=== PATIENT | female | born 1955 | race Caucasian/White ===

== ENCOUNTER 2018-08-25 01:09 | Inpatient (IN) | payer MEDICARE, OTHER ==
[~2018-08-25] VITALS: Ht 320 cm; Wt 90.0 kg
[2018-08-25] MEDS ORDERED: CefTRIAXone 2gm/D5W 50ml 50 ML IV ONE (02:15)
[2018-08-25] MEDS ORDERED: ipratropium/albuterol 3ml nebule NEB ONE (02:15)
[2018-08-25] MEDS ORDERED: azithromycin/NS 500mg/250ml 250 ML IV ONE (02:15)
[2018-08-25 02:35] LABS: ABG BASE EXCESS -2.5 mmol/L (-2.0-3.0); ABG HCO3 23.5 mmol/L (22.0-26.0); ABG OXYGEN SATURATION 93.1 % (95-98); ABG PH (T) 7.321 (7.350-7.450); ABG PO2 (T) 75.2 mmHg (83-108); ALLEN'S TEST Positive; FCOHb 1.7 % (0.5-1.5); FLOW 2 L/min; FMetHb 0.3 % (0.3-1.12); FO2Hb 91.2 % (94-100); PATIENT TEMPERATURE 38.1; RESPIRATORY RATE (OBSERVED) 24 b/min; TOTAL HEMOGLOBIN 13.2 G/dl (12.0-16.0)
[2018-08-25 02:36] LABS: HEMATOCRIT 40.3 % (35.0-45.0); HEMOGLOBIN 13.9 g/dl (12.0-16.0); MEAN CORPUSCULAR HEMOGLOBIN 33.5 PG (27.0-31.0); MEAN CORPUSCULAR HGB CONC 34.4 % (33.0-36.5); MEAN CORPUSCULAR VOLUME 97.4 FL (78-98); MEAN PLATELET VOLUME 8.6 FL (7.4-10.4); PLATELET COUNT 300 X10'3 (140-440); RED BLOOD COUNT 4.13 X10'6 (4.20-5.60); RED CELL DISTRIBUTION WIDTH 14.5 % (11.5-14.5)
[2018-08-25 02:44] LABS: ALANINE AMINOTRANSFERASE 38 U/L (12-78); ALBUMIN/GLOBULIN RATIO 0.4 (1.1-1.5); ALKALINE PHOSPHATASE 222 IU/L (46-116); ANION GAP 10 (8-16); ASPARTATE AMINO TRANSFERASE 35 U/L (10-37); BILIRUBIN,TOTAL 2.7 MG/DL (0.1-1.0); BLOOD UREA NITROGEN 47 MG/DL (7-18); BUN/CREATININE RATIO 24.5 (6.6-38.0); CALCIUM 9.6 MG/DL (8.5-10.1); CHLORIDE 94 MMOL/L (99-107); CREATININE 1.92 MG/DL (0.40-0.90); GLUCOSE 136 MG/DL (70-104); SODIUM 128 MMOL/L (135-145); TOTAL CARBON DIOXIDE 23.9 MMOL/L (24-32); TOTAL PROTEIN 7.4 G/DL (6.4-8.2); eGFR 26 ML/MIN
[2018-08-25 03:34] LABS: PLATELET ESTIMATE NORMAL; TOTAL CELLS COUNTED 100; TOXIC GRANULATION 2+; TOXIC VACUOLATION 1+
[2018-08-25] MEDS ORDERED: NO HOME MEDS (04:09)
[2018-08-25] MEDS ORDERED: morphine 4 MG/ML inj SYRINge IV PRN ×2 (05:30)
[2018-08-25] MEDS ORDERED: magnesium hydroxide 30ml (MOM) UD suspension PO PRN (05:30)
[2018-08-25] MEDS ORDERED: ondansetron/PF 4mg/2ml inj IV PRN (05:30)
[2018-08-25] MEDS ORDERED: acetaminophen 325mg tablet PO PRN (05:30)
[2018-08-25] MEDS ORDERED: albuterol 2.5 MG/3 ML nebule CONTNEB PRN (05:35)
[2018-08-25] MEDS ORDERED: albuterol 2.5 MG/3 ML nebule NEB PRN (05:40)
[2018-08-25] MEDS: normal saline 1000ml 1,000 ML IV SCH ×2 (06:52→15:30)
[2018-08-25] MEDS: CefTRIAXone 2gm/D5W 50ml 50 ML IV SCH (08:00)
[2018-08-25] MEDS ORDERED: azithromycin/NS 500mg/250ml 250 ML IV SCH (08:00)
[2018-08-25] MEDS: methylPREDNISolone sod succ 125mg/2ml vial IV SCH ×2 (14:39→21:30)
[2018-08-25] MEDS: ipratropium/albuterol 3ml nebule NEB SCH (19:42)
[2018-08-25] MEDS: lactobacillus rhamnosus 10,000 MMU CELLS/CAPSULE PO SCH (21:30)
[2018-08-26] MEDS: ipratropium/albuterol 3ml nebule NEB SCH ×7 (00:30→22:52)
[2018-08-26] MEDS: azithromycin/NS 500mg/250ml 250 ML IV SCH (02:00)
[2018-08-26] MEDS: methylPREDNISolone sod succ 125mg/2ml vial IV SCH ×4 (03:40→22:50)
[2018-08-26] MEDS: normal saline 1000ml 1,000 ML IV SCH ×3 (03:43→18:55)
--- NOTE | 2018-08-26 06:35 | NUR ---
CALLED PCJazmyn DIAZ TO BRENNEN GLEASON TO RTAKE REPORT NOT READY AT THIS TIME,CN HEATEHR AWARE.
--- NOTE | 2018-08-26 07:30 | NUR ---
Patient in room PCU 3010. I have received report from RANDA HUTTON and had the opportunity to ask questions and assume patient care.
[2018-08-26 07:40] VITALS: BP 108/63
[2018-08-26] MEDS: lactobacillus rhamnosus 10,000 MMU CELLS/CAPSULE PO SCH ×2 (08:33→22:50)
[2018-08-26] MEDS: CefTRIAXone 2gm/D5W 50ml 50 ML IV SCH (08:40)
[2018-08-26 09:31] LABS: HEMATOCRIT 34.2 % (35.0-45.0); HEMOGLOBIN 11.4 g/dl (12.0-16.0); MEAN CORPUSCULAR HGB CONC 33.2 % (33.0-36.5); MEAN CORPUSCULAR VOLUME 99.2 FL (78-98); MEAN PLATELET VOLUME 8.3 FL (7.4-10.4); PLATELET COUNT 260 X10'3 (140-440); RED BLOOD COUNT 3.45 X10'6 (4.20-5.60); RED CELL DISTRIBUTION WIDTH 14.9 % (11.5-14.5)
[2018-08-26 09:38] LABS: WHITE BLOOD COUNT 29.5 X10'3 (4.5-11.0)
[2018-08-26 09:47] LABS: ALANINE AMINOTRANSFERASE 29 U/L (12-78); ALBUMIN 1.4 G/DL (3.4-5.0); ALBUMIN/GLOBULIN RATIO 0.3 (1.1-1.5); ALKALINE PHOSPHATASE 184 IU/L (46-116); ANION GAP 10 (8-16); ASPARTATE AMINO TRANSFERASE 26 U/L (10-37); BILIRUBIN,TOTAL 0.7 MG/DL (0.1-1.0); BLOOD UREA NITROGEN 33 MG/DL (7-18); BUN/CREATININE RATIO 30.3 (6.6-38.0); CALCIUM 8.7 MG/DL (8.5-10.1); CHLORIDE 98 MMOL/L (99-107); CREATININE 1.09 MG/DL (0.40-0.90); GLUCOSE 292 MG/DL (70-104); POTASSIUM 3.7 MMOL/L (3.5-5.1); SODIUM 133 MMOL/L (135-145); TOTAL CARBON DIOXIDE 25.1 MMOL/L (24-32); TOTAL PROTEIN 6.2 G/DL (6.4-8.2); eGFR 51 ML/MIN
[2018-08-26 09:51] LABS: TOTAL CELLS COUNTED 100
[2018-08-26 09:52] LABS: PLATELET ESTIMATE NORMAL
[2018-08-26 11:00] VITALS: BP 105/62
[2018-08-26 11:14] LABS: HEMATOCRIT 34.4 % (35.0-45.0); HEMOGLOBIN 11.3 g/dl (12.0-16.0); MEAN CORPUSCULAR HEMOGLOBIN 31.8 PG (27.0-31.0); MEAN CORPUSCULAR HGB CONC 32.9 % (33.0-36.5); MEAN CORPUSCULAR VOLUME 96.6 FL (78-98); MEAN PLATELET VOLUME 8.6 FL (7.4-10.4); PLATELET COUNT 258 X10'3 (140-440); RED BLOOD COUNT 3.56 X10'6 (4.20-5.60)
[2018-08-26 11:17] LABS: WHITE BLOOD COUNT 33.3 X10'3 (4.5-11.0)
--- NOTE | 2018-08-26 11:17 | NUR ---
Notified BRENNEN Negron of critical WBC result.
[2018-08-26 11:27] LABS: TOTAL CELLS COUNTED 100
[2018-08-26 11:28] LABS: PLATELET ESTIMATE NORMAL; TOXIC GRANULATION 1+
[2018-08-26 11:38] LABS: ALANINE AMINOTRANSFERASE 27 U/L (12-78); ALBUMIN 1.3 G/DL (3.4-5.0); ALBUMIN/GLOBULIN RATIO 0.3 (1.1-1.5); ALKALINE PHOSPHATASE 188 IU/L (46-116); ANION GAP 11 (8-16); BILIRUBIN,TOTAL 0.7 MG/DL (0.1-1.0); BLOOD UREA NITROGEN 32 MG/DL (7-18); BUN/CREATININE RATIO 33.3 (6.6-38.0); CALCIUM 8.5 MG/DL (8.5-10.1); CHLORIDE 97 MMOL/L (99-107); CREATININE 0.96 MG/DL (0.40-0.90); GLUCOSE 334 MG/DL (70-104); SODIUM 132 MMOL/L (135-145); TOTAL CARBON DIOXIDE 24.1 MMOL/L (24-32); TOTAL PROTEIN 6.1 G/DL (6.4-8.2); eGFR 59 ML/MIN
[2018-08-26 11:41] LABS: ASPARTATE AMINO TRANSFERASE 26 U/L (10-37); POTASSIUM 3.9 MMOL/L (3.5-5.1)
[2018-08-26 15:00] VITALS: BP 121/64
[2018-08-26 18:00] VITALS: BP 118/67
--- NOTE | 2018-08-26 19:14 | NUR ---
Patient in room PCU 3010. I have received report from Jamil HUTTON and had the opportunity to ask questions and assume patient care.
--- NOTE | 2018-08-26 19:31 | NUR ---
Pt. appeared to have labored breathing at rest during shift handover. O2 sat in low 90s. RT called, admin treatment. Course breath sounds auscultated, moist, non productive cough noted, contributing to SOB at rest. Moderate resp relief noted post RTx.
[2018-08-26 22:00] VITALS: BP 154/74
[2018-08-26] MEDS: linezolid 600mg tablet PO SCH (22:50)
[2018-08-27] MEDS: mag hydrox/Alum hydrox/simeth 30ml oral suspension PO PRN ×2 (00:27→09:49)
[2018-08-27 02:00] VITALS: BP 137/77
[2018-08-27] MEDS: ipratropium/albuterol 3ml nebule NEB SCH ×6 (02:39→23:38)
[2018-08-27] MEDS: methylPREDNISolone sod succ 125mg/2ml vial IV SCH ×2 (02:45→07:59)
[2018-08-27] MEDS: azithromycin/NS 500mg/250ml 250 ML IV SCH (02:46)
[2018-08-27] MEDS: guaiFENesin 200 MG/10 ML oral syrup UD cup PO PRN (02:46)
[2018-08-27 05:29] LABS: ALANINE AMINOTRANSFERASE 39 U/L (12-78); ALBUMIN 1.4 G/DL (3.4-5.0); ALBUMIN/GLOBULIN RATIO 0.3 (1.1-1.5); ALKALINE PHOSPHATASE 259 IU/L (46-116); ANION GAP 10 (8-16); ASPARTATE AMINO TRANSFERASE 45 U/L (10-37); BILIRUBIN,TOTAL 0.6 MG/DL (0.1-1.0); BLOOD UREA NITROGEN 33 MG/DL (7-18); BUN/CREATININE RATIO 27.3 (6.6-38.0); CALCIUM 8.3 MG/DL (8.5-10.1); CHLORIDE 97 MMOL/L (99-107); CREATININE 1.21 MG/DL (0.40-0.90); GLUCOSE 432 MG/DL (70-104); POTASSIUM 4.1 MMOL/L (3.5-5.1); SODIUM 131 MMOL/L (135-145); TOTAL CARBON DIOXIDE 24.5 MMOL/L (24-32); TOTAL PROTEIN 6.3 G/DL (6.4-8.2); eGFR 45 ML/MIN
--- NOTE | 2018-08-27 06:26 | NUR ---
Problems reprioritized. Patient report given, questions answered & plan of care reviewed with Darlene HUTTON.
--- NOTE | 2018-08-27 06:31 | NUR ---
Patient in room PCU 3010. I have received report from BRENNEN Post and had the opportunity to ask questions and assume patient care.
[2018-08-27 06:50] LABS: HEMATOCRIT 34.3 % (35.0-45.0); HEMOGLOBIN 11.2 g/dl (12.0-16.0); MEAN CORPUSCULAR HEMOGLOBIN 31.5 PG (27.0-31.0); MEAN CORPUSCULAR HGB CONC 32.7 % (33.0-36.5); MEAN CORPUSCULAR VOLUME 96.2 FL (78-98); MEAN PLATELET VOLUME 8.9 FL (7.4-10.4); PLATELET COUNT 254 X10'3 (140-440); RED BLOOD COUNT 3.56 X10'6 (4.20-5.60); RED CELL DISTRIBUTION WIDTH 15.5 % (11.5-14.5)
[2018-08-27 06:57] LABS: WHITE BLOOD COUNT 40.7 X10'3 (4.5-11.0)
[2018-08-27 07:08] VITALS: BP 138/70
[2018-08-27] MEDS: CefTRIAXone 2gm/D5W 50ml 50 ML IV SCH (07:59)
[2018-08-27] MEDS: linezolid 600mg tablet PO SCH ×2 (07:59→20:49)
[2018-08-27] MEDS: lactobacillus rhamnosus 10,000 MMU CELLS/CAPSULE PO SCH ×2 (07:59→20:48)
[2018-08-27 08:31] LABS: METAMYLEOCYTES% (MANUAL) 1.5 % (0-0); MYELOCYTES % (MANUAL) 1.5 % (0-0); PLATELET ESTIMATE NORMAL; TOTAL CELLS COUNTED 200
[2018-08-27 08:32] LABS: ANISOCYTOSIS 1+; HYPOCHROMASIA 1+; POLYCHROMASIA FEW; TOXIC GRANULATION 1+
[2018-08-27 13:54] VITALS: BP 115/64
[2018-08-27] MEDS: normal saline 1000ml 1,000 ML IV SCH (14:21)
[2018-08-27 15:00] VITALS: BP 127/70
--- NOTE | 2018-08-27 17:38 | NUR ---
Zyvox education: patient receiving zyvox, patient seen at bedside was sleeping and not alert for verbal education. Left written low tyramine education handout at her bedside with BRADEN contact information. Addendum: 08/27/18 at [address] Amended: Links added.
[2018-08-27 18:00] VITALS: BP 142/74
--- NOTE | 2018-08-27 18:42 | NUR ---
Problems reprioritized. Patient report given, questions answered & plan of care reviewed with BRENNEN MASON.
--- NOTE | 2018-08-27 18:44 | NUR ---
Patient in room PCU 3010. I have received report from Darlene HUTTON and had the opportunity to ask questions and assume patient care.
[2018-08-27 22:00] VITALS: BP 125/74
[2018-08-28] MEDS: azithromycin/NS 500mg/250ml 250 ML IV SCH (01:34)
[2018-08-28 02:00] VITALS: BP 107/62
[2018-08-28] MEDS: guaiFENesin 200 MG/10 ML oral syrup UD cup PO PRN (02:33)
[2018-08-28] MEDS: ipratropium/albuterol 3ml nebule NEB SCH ×6 (04:09→23:21)
[2018-08-28 05:12] LABS: MEAN PLATELET VOLUME 7.9 FL (7.4-10.4); PLATELET COUNT 335 X10'3 (140-440); RED CELL DISTRIBUTION WIDTH 15.2 % (11.5-14.5)
[2018-08-28 05:38] LABS: ALANINE AMINOTRANSFERASE 60 U/L (12-78); ALBUMIN 1.4 G/DL (3.4-5.0); ALBUMIN/GLOBULIN RATIO 0.3 (1.1-1.5); ALKALINE PHOSPHATASE 276 IU/L (46-116); ANION GAP 6 (8-16); ASPARTATE AMINO TRANSFERASE 48 U/L (10-37); BILIRUBIN,TOTAL 0.4 MG/DL (0.1-1.0); BLOOD UREA NITROGEN 24 MG/DL (7-18); BUN/CREATININE RATIO 27.3 (6.6-38.0); CALCIUM 8.3 MG/DL (8.5-10.1); CHLORIDE 101 MMOL/L (99-107); CREATININE 0.88 MG/DL (0.40-0.90); GLUCOSE 335 MG/DL (70-104); POTASSIUM 4.2 MMOL/L (3.5-5.1); SODIUM 135 MMOL/L (135-145); TOTAL CARBON DIOXIDE 27.9 MMOL/L (24-32); TOTAL PROTEIN 5.5 G/DL (6.4-8.2); eGFR 65 ML/MIN
[2018-08-28 06:30] VITALS: BP 103/75
[2018-08-28 06:32] LABS: HEMATOCRIT 31.5 % (35.0-45.0); HEMOGLOBIN 10.4 g/dl (12.0-16.0); MEAN CORPUSCULAR HEMOGLOBIN 31.4 PG (27.0-31.0); MEAN CORPUSCULAR VOLUME 95.3 FL (78-98); RED BLOOD COUNT 3.31 X10'6 (4.20-5.60)
[2018-08-28 06:33] LABS: WHITE BLOOD COUNT 32.3 X10'3 (4.5-11.0)
--- NOTE | 2018-08-28 06:38 | NUR ---
Patient in room PCU 3010. I have received report from BRENNEN Carvalho and had the opportunity to ask questions and assume patient care.
--- NOTE | 2018-08-28 06:40 | NUR ---
Problems reprioritized. Patient report given, questions answered & plan of care reviewed with Leeanna HUTTON.
[2018-08-28 07:43] LABS: ANISOCYTOSIS 1+; PLATELET ESTIMATE NORMAL; TOTAL CELLS COUNTED 100; TOXIC GRANULATION 1+
[2018-08-28 07:44] LABS: POLYCHROMASIA FEW
[2018-08-28] MEDS: linezolid 600mg tablet PO SCH ×2 (08:34→20:16)
[2018-08-28] MEDS: CefTRIAXone 2gm/D5W 50ml 50 ML IV SCH (08:34)
[2018-08-28] MEDS: lactobacillus rhamnosus 10,000 MMU CELLS/CAPSULE PO SCH ×2 (08:34→20:16)
[2018-08-28] MEDS: normal saline 1000ml 1,000 ML IV SCH (08:41)
[2018-08-28 11:30] VITALS: BP 119/73
--- NOTE | 2018-08-28 11:54 | NUR ---
Initial: pt admitted with acute right lower lobe pneumonia with sepsis and concern about a PE. Pt continues with Zyvox for tx. Currently on regular diet with average intake of 75% likely meeting nutrient needs. Pt with elevated BG levels, previously receiving steroids however just have recently been d/c'ed. Will continue to monitor BG trends and make recommendations as appropriate. [facility] 08/27. No edema or wounds. Will continue to follow. Recommendations: 1) Continue with regular diet 2) Monitor need for ONS 3) Monitor BG levels 4) Wt per rx Addendum: 08/28/18 at [address] Amended: Links added.
[2018-08-28 15:30] VITALS: BP 122/74
[2018-08-28 18:00] VITALS: BP 108/69
--- NOTE | 2018-08-28 18:10 | NUR ---
Problems reprioritized. Patient report given, questions answered & plan of care reviewed with BRENNEN Connelly.
--- NOTE | 2018-08-28 18:26 | NUR ---
Patient in room PCU 3010. I have received report from CORBY HUTTON and had the opportunity to ask questions and assume patient care. Addendum: 08/28/18 at 1826 by Maricel Yee RN Amended: Links added.
--- NOTE | 2018-08-28 19:14 | NUR ---
WATCHING TV WITHOUT COMPLAINTS.
--- NOTE | 2018-08-28 19:55 | NUR ---
pt took po meds no complaints at this time.
--- NOTE | 2018-08-28 21:00 | NUR ---
pt and sister watching tv no changes finishing eating some of the food her per pt states twin sister brought in.
[2018-08-28 22:00] VITALS: BP 107/69
--- NOTE | 2018-08-28 23:00 | NUR ---
sister and pt watching tv. no changes.
--- NOTE | 2018-08-29 00:24 | NUR ---
sister left for home pt laying awake in bed now watching tv.
[2018-08-29 02:00] VITALS: BP 122/71
[2018-08-29] MEDS: linezolid 600mg tablet PO SCH ×2 (02:01→19:49)
--- NOTE | 2018-08-29 02:17 | NUR ---
PT WATCHING TV TOOK ABX AND HAS DRY NON PRODUCTIVE COUGH AT THIS TIME.
[2018-08-29] MEDS: azithromycin/NS 500mg/250ml 250 ML IV SCH (02:18)
[2018-08-29] MEDS: ipratropium/albuterol 3ml nebule NEB SCH ×6 (03:13→22:59)
--- NOTE | 2018-08-29 03:25 | NUR ---
Rt in pt in the barthroom with sob sats at 88% she turned o2 up to 5 liters. resp tx done and pt coughing course nonproductively.
--- NOTE | 2018-08-29 04:00 | NUR ---
pt's 02 up to 5l sats 93-95% turned back down to 3 l and watched them stay 92-93% to resting in bed awake. flushed her iv after abx infused and teaching done on the importance of rest to help her heal. lights off.
--- NOTE | 2018-08-29 05:17 | NUR ---
pt awake sitting up in bed denies complaints tired but not sleeping.
[2018-08-29 06:00] VITALS: BP 96/49
--- NOTE | 2018-08-29 06:15 | NUR ---
Problems reprioritized. Patient report given, questions answered & plan of care reviewed with CARLOTTA HUTTON. Addendum: 08/29/18 at 0616 by Maricel Yee RN Amended: Links added.
--- NOTE | 2018-08-29 06:43 | NUR ---
Patient in room PCU 3010. I have received report from SANTO HUTTON and had the opportunity to ask questions and assume patient care.
[2018-08-29 07:06] LABS: BASOPHILS % (AUTO) 0.1 % (0-1); EOSINOPHILS % (AUTO) 0.1 % (0-6); HEMATOCRIT 35.4 % (35.0-45.0); LYMPHOCYTES # (AUTO) 1.7 X10'3 (1.1-4.8); LYMPHOCYTES % (AUTO) 4.2 % (21-51); MEAN CORPUSCULAR HEMOGLOBIN 33.2 PG (27.0-31.0); MEAN CORPUSCULAR HGB CONC 33.9 % (33.0-36.5); MEAN CORPUSCULAR VOLUME 97.9 FL (78-98); MONOCYTES # (AUTO) 0.8 X10'3 (0-0.9); MONOCYTES % (AUTO) 1.8 % (2-12); NEUTROPHILS # (AUTO) 38.4 X10'3 (1.8-7.7); NEUTROPHILS % (AUTO) 93.8 % (42-75); PLATELET COUNT 432 X10'3 (140-440); RED BLOOD COUNT 3.62 X10'6 (4.20-5.60); RED CELL DISTRIBUTION WIDTH 14.8 % (11.5-14.5)
[2018-08-29 07:11] LABS: WHITE BLOOD COUNT 40.9 X10'3 (4.5-11.0)
--- NOTE | 2018-08-29 07:13 | NUR ---
PER PROTOCOL, NOTIFIED HOSPITALIST OF PT'S CRITICAL WBC OF 40.9 AWAITING RESPONSE
[2018-08-29 07:21] LABS: ALANINE AMINOTRANSFERASE 126 U/L (12-78); ALBUMIN 1.6 G/DL (3.4-5.0); ALBUMIN/GLOBULIN RATIO 0.4 (1.1-1.5); ALKALINE PHOSPHATASE 229 IU/L (46-116); ANION GAP 7 (8-16); BILIRUBIN,TOTAL 1.4 MG/DL (0.1-1.0); BLOOD UREA NITROGEN 18 MG/DL (7-18); BUN/CREATININE RATIO 20.9 (6.6-38.0); CALCIUM 8.3 MG/DL (8.5-10.1); CHLORIDE 100 MMOL/L (99-107); CREATININE 0.86 MG/DL (0.40-0.90); GLUCOSE 152 MG/DL (70-104); SODIUM 136 MMOL/L (135-145); TOTAL CARBON DIOXIDE 28.8 MMOL/L (24-32); TOTAL PROTEIN 6.1 G/DL (6.4-8.2); eGFR 67 ML/MIN
[2018-08-29 07:25] LABS: ASPARTATE AMINO TRANSFERASE 90 U/L (10-37); POTASSIUM 4.4 MMOL/L (3.5-5.1)
[2018-08-29] MEDS: lactobacillus rhamnosus 10,000 MMU CELLS/CAPSULE PO SCH ×2 (07:35→19:49)
[2018-08-29] MEDS: CefTRIAXone 2gm/D5W 50ml 50 ML IV SCH (07:36)
[2018-08-29 07:49] LABS: PLATELET ESTIMATE NORMAL; TOTAL CELLS COUNTED 100
[2018-08-29] MEDS: methylPREDNISolone sod succ 125mg/2ml vial IV SCH ×2 (09:45→16:13)
[2018-08-29 11:00] VITALS: BP 120/61
--- NOTE | 2018-08-29 11:11 | NUR ---
pt increased wob and o2 demad discussed with khari damico. told pt meds adjusted and abg not needed at time. watching closely Addendum: 08/29/18 at 1113 by Gloria Amaya RT Amended: Links added.
[2018-08-29 15:00] VITALS: BP 122/72
[2018-08-29 18:00] VITALS: BP 141/79
--- NOTE | 2018-08-29 18:28 | NUR ---
PATIENT REPORT RECEIVED FROM CARLOTTA HUTTON.
[2018-08-29 22:00] VITALS: BP 111/54
[2018-08-30] MEDS: methylPREDNISolone sod succ 125mg/2ml vial IV SCH ×2 (00:11→08:05)
[2018-08-30 02:00] VITALS: BP 98/58
[2018-08-30] MEDS: azithromycin/NS 500mg/250ml 250 ML IV SCH (02:24)
[2018-08-30] MEDS: ipratropium/albuterol 3ml nebule NEB SCH ×6 (03:08→23:43)
[2018-08-30 05:04] LABS: BASOPHILS % (AUTO) 0 % (0-1); EOSINOPHILS # (AUTO) 0.6 X10'3 (0-0.9); EOSINOPHILS % (AUTO) 1.5 % (0-6); HEMATOCRIT 35.2 % (35.0-45.0); HEMOGLOBIN 11.5 g/dl (12.0-16.0); LYMPHOCYTES # (AUTO) 0.6 X10'3 (1.1-4.8); LYMPHOCYTES % (AUTO) 1.4 % (21-51); MEAN CORPUSCULAR HEMOGLOBIN 32.5 PG (27.0-31.0); MEAN CORPUSCULAR HGB CONC 32.7 % (33.0-36.5); MEAN CORPUSCULAR VOLUME 99.6 FL (78-98); MEAN PLATELET VOLUME 7.9 FL (7.4-10.4); MONOCYTES # (AUTO) 0.2 X10'3 (0-0.9); MONOCYTES % (AUTO) 0.5 % (2-12); NEUTROPHILS # (AUTO) 39.1 X10'3 (1.8-7.7); NEUTROPHILS % (AUTO) 96.6 % (42-75); PLATELET COUNT 450 X10'3 (140-440); RED BLOOD COUNT 3.53 X10'6 (4.20-5.60); RED CELL DISTRIBUTION WIDTH 14.6 % (11.5-14.5)
[2018-08-30 05:14] LABS: ALANINE AMINOTRANSFERASE 82 U/L (12-78); ALBUMIN 1.7 G/DL (3.4-5.0); ALBUMIN/GLOBULIN RATIO 0.4 (1.1-1.5); ALKALINE PHOSPHATASE 206 IU/L (46-116); ANION GAP 7 (8-16); ASPARTATE AMINO TRANSFERASE 27 U/L (10-37); BILIRUBIN,TOTAL 0.8 MG/DL (0.1-1.0); BLOOD UREA NITROGEN 20 MG/DL (7-18); BUN/CREATININE RATIO 22.5 (6.6-38.0); CALCIUM 8.4 MG/DL (8.5-10.1); CHLORIDE 97 MMOL/L (99-107); CREATININE 0.89 MG/DL (0.40-0.90); GLUCOSE 274 MG/DL (70-104); POTASSIUM 4.4 MMOL/L (3.5-5.1); SODIUM 134 MMOL/L (135-145); TOTAL CARBON DIOXIDE 29.6 MMOL/L (24-32); TOTAL PROTEIN 6.2 G/DL (6.4-8.2); eGFR 64 ML/MIN
[2018-08-30 05:32] LABS: WHITE BLOOD COUNT 40.5 X10'3 (4.5-11.0)
--- NOTE | 2018-08-30 05:35 | NUR ---
PAGER ID: [phone] MESSAGE: PATIENT [id number] CARRIER, SEAN: CRITICAL WBC 40.5H. MEGGAN Martino [id number].
[2018-08-30 05:58] LABS: TOTAL CELLS COUNTED 100
[2018-08-30 05:59] LABS: PLATELET ESTIMATE INCREASED; TARGET CELLS FEW
[2018-08-30 06:00] VITALS: BP 118/73
--- NOTE | 2018-08-30 06:06 | NUR ---
PATIENT REPORT GIVEN TO ELIZABETH HUTTON.
--- NOTE | 2018-08-30 06:24 | NUR ---
Patient in room PCU 3010. I have received report from Letitia HUTTON and had the opportunity to ask questions and assume patient care. Pt sleeping and appears to be in no distress at time of transfer.
[2018-08-30] MEDS: lactobacillus rhamnosus 10,000 MMU CELLS/CAPSULE PO SCH ×2 (08:05→19:37)
[2018-08-30] MEDS: linezolid 600mg tablet PO SCH ×2 (08:05→19:36)
[2018-08-30] MEDS: CefTRIAXone 2gm/D5W 50ml 50 ML IV SCH (08:06)
[2018-08-30 11:00] VITALS: BP 122/68
[2018-08-30] MEDS ORDERED: furosemide 40mg/4ml inj IV ONE (14:05)
[2018-08-30 15:00] VITALS: BP 117/64
[2018-08-30] MEDS: methylPREDNISolone sod succ/PF 40mg inj. IV SCH (16:28)
[2018-08-30 19:00] VITALS: BP 115/54
[2018-08-30] MEDS: furosemide 20 MG/2 ML vial IV SCH (19:36)
[2018-08-30 23:00] VITALS: BP 109/60
[2018-08-31] VITALS (8 sets, daily range): BP systolic 94–117; BP diastolic 45–67
[2018-08-31] MEDS: azithromycin/NS 500mg/250ml 250 ML IV SCH (02:56)
[2018-08-31] MEDS: ipratropium/albuterol 3ml nebule NEB SCH ×6 (03:00→23:35)
[2018-08-31] MEDS: linezolid 600mg tablet PO SCH ×2 (07:17→19:51)
[2018-08-31] MEDS: lactobacillus rhamnosus 10,000 MMU CELLS/CAPSULE PO SCH ×2 (07:17→19:51)
[2018-08-31] MEDS: CefTRIAXone 2gm/D5W 50ml 50 ML IV SCH (07:17)
[2018-08-31] MEDS: methylPREDNISolone sod succ/PF 40mg inj. IV SCH ×3 (07:17→19:51)
[2018-08-31] MEDS: furosemide 20 MG/2 ML vial IV SCH ×2 (07:19→19:51)
[2018-08-31 09:59] LABS: BASOPHILS % (AUTO) 0 % (0-1); EOSINOPHILS # (AUTO) 0.4 X10'3 (0-0.9); EOSINOPHILS % (AUTO) 1.4 % (0-6); HEMATOCRIT 33.7 % (35.0-45.0); HEMOGLOBIN 11.2 g/dl (12.0-16.0); LYMPHOCYTES # (AUTO) 0.5 X10'3 (1.1-4.8); LYMPHOCYTES % (AUTO) 1.5 % (21-51); MEAN CORPUSCULAR HEMOGLOBIN 31.8 PG (27.0-31.0); MEAN CORPUSCULAR HGB CONC 33.2 % (33.0-36.5); MEAN CORPUSCULAR VOLUME 95.9 FL (78-98); MEAN PLATELET VOLUME 7.9 FL (7.4-10.4); MONOCYTES # (AUTO) 0.8 X10'3 (0-0.9); MONOCYTES % (AUTO) 2.4 % (2-12); NEUTROPHILS # (AUTO) 30.3 X10'3 (1.8-7.7); NEUTROPHILS % (AUTO) 94.7 % (42-75); PLATELET COUNT 508 X10'3 (140-440); RED BLOOD COUNT 3.51 X10'6 (4.20-5.60); RED CELL DISTRIBUTION WIDTH 14.5 % (11.5-14.5)
--- NOTE | 2018-08-31 10:02 | NUR ---
Received critical WBC 32.0. Critical lab given to Larisa HUTTON
[2018-08-31 10:09] LABS: ALBUMIN 1.7 G/DL (3.4-5.0); ANION GAP 7 (8-16); BLOOD UREA NITROGEN 22 MG/DL (7-18); BUN/CREATININE RATIO 21.8 (6.6-38.0); CALCIUM 8.1 MG/DL (8.5-10.1); CHLORIDE 97 MMOL/L (99-107); CREATININE 1.01 MG/DL (0.40-0.90); GLUCOSE 391 MG/DL (70-104); POTASSIUM 4.6 MMOL/L (3.5-5.1); SODIUM 136 MMOL/L (135-145); TOTAL CARBON DIOXIDE 32.2 MMOL/L (24-32); eGFR 55 ML/MIN
[2018-08-31 10:37] LABS: PLATELET ESTIMATE INCREASED; TOTAL CELLS COUNTED 100
--- NOTE | 2018-08-31 14:07 | NUR ---
Reassessment: Breathing improving per MD notes. Documented PO intake averages 75% on regular diet likely meeting nutrient needs. [facility] 08/29. Will continue to follow. Recommendations: 1) Continue with regular diet 2) Monitor need for ONS 3) Monitor BG levels 4) Wt per rx Addendum: 08/31/18 at [address] Amended: Links added.
[2018-08-31] MEDS ORDERED: temazepam 15mg capsule PO PRN (23:35)
[2018-09-01 02:00] VITALS: BP 107/53
[2018-09-01] MEDS: azithromycin/NS 500mg/250ml 250 ML IV SCH (02:22)
[2018-09-01] MEDS: ipratropium/albuterol 3ml nebule NEB SCH ×4 (03:00→11:26)
--- NOTE | 2018-09-01 06:10 | NUR ---
Patient in room PCU 3010. I have received report from Tj HUTTON and had the opportunity to ask questions and assume patient care.
--- NOTE | 2018-09-01 06:14 | NUR ---
Problems reprioritized. Patient report given, questions answered & plan of care reviewed with KASH. Addendum: 09/01/18 at 0614 by Mahesh Madrigal RN Amended: Links added.
[2018-09-01 06:59] LABS: BASOPHILS % (AUTO) 0 % (0-1); EOSINOPHILS # (AUTO) 0.3 X10'3 (0-0.9); EOSINOPHILS % (AUTO) 1.3 % (0-6); HEMATOCRIT 32.6 % (35.0-45.0); HEMOGLOBIN 10.7 g/dl (12.0-16.0); LYMPHOCYTES # (AUTO) 0.8 X10'3 (1.1-4.8); LYMPHOCYTES % (AUTO) 3.7 % (21-51); MEAN CORPUSCULAR HEMOGLOBIN 31.9 PG (27.0-31.0); MEAN CORPUSCULAR HGB CONC 32.7 % (33.0-36.5); MEAN CORPUSCULAR VOLUME 97.5 FL (78-98); MEAN PLATELET VOLUME 7.6 FL (7.4-10.4); MONOCYTES # (AUTO) 0.4 X10'3 (0-0.9); MONOCYTES % (AUTO) 2.1 % (2-12); NEUTROPHILS # (AUTO) 19.1 X10'3 (1.8-7.7); NEUTROPHILS % (AUTO) 92.9 % (42-75); PLATELET COUNT 483 X10'3 (140-440); RED BLOOD COUNT 3.34 X10'6 (4.20-5.60); RED CELL DISTRIBUTION WIDTH 14.6 % (11.5-14.5); WHITE BLOOD COUNT 20.5 X10'3 (4.5-11.0)
[2018-09-01 07:00] VITALS: BP 123/63
[2018-09-01 07:17] LABS: ALBUMIN 1.7 G/DL (3.4-5.0); ANION GAP 7 (8-16); BLOOD UREA NITROGEN 22 MG/DL (7-18); BUN/CREATININE RATIO 25.3 (6.6-38.0); CALCIUM 8.8 MG/DL (8.5-10.1); CHLORIDE 99 MMOL/L (99-107); CREATININE 0.87 MG/DL (0.40-0.90); GLUCOSE 293 MG/DL (70-104); POTASSIUM 4.6 MMOL/L (3.5-5.1); SODIUM 138 MMOL/L (135-145); TOTAL CARBON DIOXIDE 32.2 MMOL/L (24-32); eGFR 66 ML/MIN
[2018-09-01] MEDS: lactobacillus rhamnosus 10,000 MMU CELLS/CAPSULE PO SCH (07:31)
[2018-09-01] MEDS: CefTRIAXone 2gm/D5W 50ml 50 ML IV SCH (07:31)
[2018-09-01] MEDS: furosemide 20 MG/2 ML vial IV SCH (07:31)
[2018-09-01] MEDS: methylPREDNISolone sod succ/PF 40mg inj. IV SCH (07:31)
[2018-09-01] MEDS: linezolid 600mg tablet PO SCH (08:39)
--- NOTE | 2018-09-01 09:56 | NUR ---
Extended PIV inserted to the right upper arm cephalic vein x 1 attempt using ultrasound. Miriam well Addendum: 09/01/18 at 0957 by Ginny Headley RN Amended: Links added.
[2018-09-01 11:00] VITALS: BP 126/69
--- NOTE | 2018-09-01 13:18 | NUR ---
Patient discharged to [facility] Patient discharged to [facility]. [employer] arrived and retrieved patient. Kim was parts sales representative from [employer]. Called and gave report to Alana Sherman RN at [facility] prior to patient's discharge. Patient left with all belongings, consisted of sweater, food items, cell phone, radio message router, and glasses. Patient transferred with [employer] via wheelchair. Patient discharged with PICC line in right upper arm and peripheral IV in left upper arm. Patient discharged with nasal cannula and portable oxygen tank at 3L/min. Patient's packet to be provided to [facility] given to Kim from [employer] at discharge.
== END 2018-09-01 13:10 | DRG 871 ==
LOC: ER 01:09 → ED HOLD 05:30 → EDBEDREQ 18:53 → ED HOLD 23:13 → PCU 3S 08-26 07:23
PROVIDERS: ADMIT Internal Medicine; ATTEND Family Medicine
DX: A41.9 Sepsis, unspecified organism (principal); J96.01 Acute respiratory failure with hypoxia; J18.1 Lobar pneumonia, unspecified organism; I50.32 Chronic diastolic (congestive) heart failure; R04.2 Hemoptysis; E87.1 Hypo-osmolality and hyponatremia; J44.0 Chronic obstructive pulmonary disease with (acute) lower respiratory infection; J44.1 Chronic obstructive pulmonary disease with (acute) exacerbation; N17.9 Acute kidney failure, unspecified; J98.01 Acute bronchospasm; T38.0X5A Adverse effect of glucocorticoids and synthetic analogues, initial encounter; E86.0 Dehydration; E07.9 Disorder of thyroid, unspecified; R74.0 Nonspecific elevation of levels of transaminase and lactic acid dehydrogenase [LDH]; Z79.899 Other long term (current) drug therapy; Y92.89 Other specified places as the place of occurrence of the external cause; Z71.6 Tobacco abuse counseling
CPT/HCPCS: 36415; 36600; 71045; 71250; 80048; 80053; 82803; 83605; 83880; 84145; 84439; 84443; 84484; 85018; 85025; 87040; 87070; 87502; 87503; 93005; 93306; 94640; 94760; 96365; 96366; 96368; 97116; 97162; 99285; G0378; J0456; J0696; J1940; J2270; J2920; J2930; J7030

== ENCOUNTER 2018-09-07 23:04 | Inpatient (IN) | payer MEDICARE, OTHER | END 2018-09-16 13:30 | disposition home or self-care (01) | LOC: ER 23:04 → ED HOLD 09-08 01:42 → ORTHO 4S 09-08 03:12 | DX: A41.9 Sepsis, unspecified organism (principal); I50.33 Acute on chronic diastolic (congestive) heart failure; J85.1 Abscess of lung with pneumonia; J18.9 Pneumonia, unspecified organism ==

== ENCOUNTER 2023-11-03 17:21 | Emergency (ER) | payer MEDICARE ==
[~2023-11-03] VITALS: Ht 167.6 cm; Wt 81.8 kg
[~2023-11-03 17:21] MED LIST: ASPI-1071 PO; COR3.125T PO; FURO-149 PO; LEVO750T68 PO; LISI5TAB22 PO
[2023-11-03 17:28] VITALS: TEMP 97.8
[2023-11-03 18:14] LABS: BASOPHILS % (AUTO) 0.8 % (0-1); EOSINOPHILS # (AUTO) 0.1 X10'3 (0-0.9); HEMOGLOBIN 14.4 g/dl (12.0-16.0); LYMPHOCYTES # (AUTO) 0.7 X10'3 (1.1-4.8); MONOCYTES # (AUTO) 0.4 X10'3 (0-0.9)
[2023-11-03 18:20] LABS: BASOPHILS # (AUTO) 0.1 X10'3 (0-0.2); EOSINOPHILS % (AUTO) 2.2 % (0-6); HEMATOCRIT 43.8 % (35.0-45.0); LYMPHOCYTES % (AUTO) 10.8 % (21-51); MEAN CORPUSCULAR HGB CONC 32.9 g/dL (33.0-36.5); MEAN CORPUSCULAR VOLUME 100.4 FL (78-98); MEAN PLATELET VOLUME 8.3 FL (7.4-10.4); MONOCYTES % (AUTO) 6.1 % (2-12); NEUTROPHILS % (AUTO) 80.1 % (42-75); PLATELET COUNT 282 X10'3 (140-440); RED BLOOD COUNT 4.36 X10'6 (4.20-5.60); RED CELL DISTRIBUTION WIDTH 15.4 % (11.5-14.5); WHITE BLOOD COUNT 6.2 X10'3 (4.5-11.0)
[2023-11-03 18:26] LABS: ALANINE AMINOTRANSFERASE 69 U/L (12-78); ALBUMIN 2.9 G/DL (3.4-5.0); ALBUMIN/GLOBULIN RATIO 0.7 (1.1-1.5); ANION GAP 6 (8-16); ASPARTATE AMINO TRANSFERASE 59 U/L (10-37); BILIRUBIN,TOTAL 0.5 MG/DL (0.1-1.0); BLOOD UREA NITROGEN 24 MG/DL (7-18); BUN/CREATININE RATIO 28.6 (10.0-20.0); CALCIUM 8.4 MG/DL (8.5-10.1); CHLORIDE 106 MMOL/L (99-107); CREATININE 0.84 MG/DL (0.40-0.90); POTASSIUM 4.9 MMOL/L (3.5-5.1); SODIUM 140 MMOL/L (135-145); TOTAL CARBON DIOXIDE 27.8 MMOL/L (24-32); TOTAL PROTEIN 7.3 G/DL (6.4-8.2); eCRCL 60 ML/MIN; eGFR 67 ML/MIN
[2023-11-03 18:27] LABS: ALKALINE PHOSPHATASE 342 IU/L (46-116); LIPASE 75 U/L (16-77)
[2023-11-03 19:07] LABS: GLUCOSE 104 MG/DL (70-104)
[2023-11-03 20:50] LABS: BILIRUBIN,URINE NEGATIVE (Neg); COLOR,URINE YELLOW (Yellow); GLUCOSE, URINE NEGATIVE (Neg); KETONES,URINE NEGATIVE (Neg); LEUKOCYTE ESTERASE ,URINE NEGATIVE (Neg); NITRITES, URINE NEGATIVE (Neg); OCCULT BLOOD,URINE LARGE (Neg); PH,URINE 5.5 (4.8-8.0); PROTEIN,URINE NEGATIVE (Neg); UROBILINOGEN,URINE 0.2 E.U/dL (0.2-1.0)
[2023-11-03 20:51] LABS: UA COLLECTION TYPE CLN CATCH MIDSTREAM
[2023-11-03 20:57] LABS: RBC,URINE 20-50 /HPF (0-2); WBC,URINE 0-4 /HPF (0-4)
[2023-11-03 20:58] LABS: AMORPHOUS URATES 1+; BACTERIA,URINE FEW /HPF (Neg); CLARITY,URINE SLIGHTLY CLOUDY (Clear); MUCUS STRANDS FEW /LPF (Neg); RENAL CELLS, URINE FEW /HPF; SQUAMOUS EPITHELIAL CELL,UR FEW /LPF (FEW)
[2023-11-03] MEDS ORDERED: CefTRIAXone 250MG inj IM ONE (21:35)
[2023-11-03] MEDS ORDERED: NITR100C6 PO (21:46)
[2023-11-03] MEDS: CefTRIAXone 250MG IM Kit w/LIDOcaine IM ONE (21:56)
[2023-11-03 22:05] VITALS: BP 133/79; PULSE 88; RESP 18; O2SAT 95
== END 2023-11-03 22:15 | disposition home or self-care (01) ==
LOC: ER 17:21
DX: N39.0 Urinary tract infection, site not specified (principal); E03.9 Hypothyroidism, unspecified; Z79.899 Other long term (current) drug therapy
CPT/HCPCS: 36415; 72100; 80053; 81001; 83690; 85025; 96372; 99284; J0696; A4615; C1758

== ENCOUNTER 2024-01-15 22:01 | Emergency (ER) | payer MEDICARE ==
[~2024-01-15] VITALS: Ht 167.6 cm; Wt 80.0 kg
[~2024-01-15 22:01] MED LIST changes: +NITR100C6 PO
[2024-01-15] MEDS: normal saline 1000ml 1,000 ML IV ONE (22:45)
[2024-01-15] MEDS: vancomycin/NS 1 GM ADD-VANTAGE 250 ML IV ONE (22:50)
[2024-01-15] MEDS: ethyl chloride 103.5ml spray TP ONE (23:24)
[2024-01-15] MEDS: piperacillin/tazo 3.375gm/50ml 50 ML IV ONE (23:25)
[2024-01-15 23:42] LABS: BASOPHILS # (AUTO) 0.1 X10'3 (0-0.2); BASOPHILS % (AUTO) 1.3 % (0-1); EOSINOPHILS # (AUTO) 0.2 X10'3 (0-0.9); EOSINOPHILS % (AUTO) 3.5 % (0-6); HEMATOCRIT 47.3 % (35.0-45.0); HEMOGLOBIN 15.6 g/dl (12.0-16.0); LYMPHOCYTES # (AUTO) 0.7 X10'3 (1.1-4.8); LYMPHOCYTES % (AUTO) 11.8 % (21-51); MEAN CORPUSCULAR HEMOGLOBIN 32.9 PG (27.0-31.0); MEAN CORPUSCULAR VOLUME 99.9 FL (78-98); MEAN PLATELET VOLUME 8.5 FL (7.4-10.4); MONOCYTES # (AUTO) 0.4 X10'3 (0-0.9); MONOCYTES % (AUTO) 7.6 % (2-12); NEUTROPHILS # (AUTO) 4.4 X10'3 (1.8-7.7); NEUTROPHILS % (AUTO) 75.8 % (42-75); PLATELET COUNT 211 X10'3 (140-440); RED BLOOD COUNT 4.74 X10'6 (4.20-5.60); RED CELL DISTRIBUTION WIDTH 17.2 % (11.5-14.5); WHITE BLOOD COUNT 5.7 X10'3 (4.5-11.0)
[2024-01-15 23:59] LABS: ALBUMIN 3.2 G/DL (3.4-5.0); ANION GAP 5 (8-16); BLOOD UREA NITROGEN 20 MG/DL (7-18); BUN/CREATININE RATIO 18.3 (10.0-20.0); CALCIUM 9.3 MG/DL (8.5-10.1); CHLORIDE 102 MMOL/L (99-107); CREATININE 1.09 MG/DL (0.40-0.90); MAGNESIUM 1.7 MG/DL (1.5-2.4); POTASSIUM 4.1 MMOL/L (3.5-5.1); SODIUM 139 MMOL/L (135-145); TOTAL CARBON DIOXIDE 32.2 MMOL/L (24-32); eCRCL 46 ML/MIN; eGFR 50 ML/MIN
[2024-01-16 00:07] LABS: GLUCOSE 93 MG/DL (70-104)
[2024-01-16] MEDS ORDERED: SULF1TAB49 PO (01:44)
[2024-01-16] MEDS ORDERED: CEPH-585 PO (01:44)
[2024-01-16 03:00] VITALS: BP 113/74; PULSE 86; RESP 16; TEMP 97.8; O2SAT 96
== END 2024-01-16 03:04 | disposition home or self-care (01) ==
LOC: ER 22:01
DX: B87.9 Myiasis, unspecified (principal); L03.116 Cellulitis of left lower limb; Z79.82 Long term (current) use of aspirin; Z79.1 Long term (current) use of non-steroidal anti-inflammatories (NSAID); Z79.899 Other long term (current) drug therapy
CPT/HCPCS: 36415; 73620; 80048; 83605; 83735; 84145; 85025; 87040; 96365; 96368; 99285; A6222; A6223; J2543; J3370; J7030; A6446